=== PATIENT | female | born 1940 | race Caucasian/White ===

== ENCOUNTER 2021-12-13 03:05 | Inpatient (IN) | payer MEDICARE, OTHER ==
[~2021-12-13] VITALS: Ht 160 cm; Wt 54.4 kg
[2021-12-13] MEDS ORDERED: DIVA500T2 PO (03:59)
[2021-12-13 04:00] VITALS: BP 130/74
[2021-12-13] MEDS ORDERED: MAGNESIUM HYDROXIDE 30 ML UDC PO PRN (04:00)
[2021-12-13] MEDS ORDERED: MAG HYDROX/AL HYDROX/SIMETH 30 ML UDC PO PRN (04:00)
[2021-12-13] MEDS ORDERED: ACETAMINOPHEN 325 MG TABLET PO PRN (04:00)
[2021-12-13] MEDS ORDERED: TEMAZEPAM 7.5 MG CAPSULE PO PRN (04:00)
[2021-12-13 04:01] VITALS: BP 130/74
[2021-12-13] MEDS ORDERED: GABA-532 PO (04:03)
[2021-12-13] MEDS ORDERED: HYDR-3972 PO (04:04)
[2021-12-13] MEDS ORDERED: IBUP-1953 PO (04:05)
[2021-12-13] MEDS ORDERED: LEVO75TA7 PO (04:06)
[2021-12-13] MEDS ORDERED: LORA-259 PO (04:07)
[2021-12-13] MEDS ORDERED: OMEP20CA15 PO (04:07)
[2021-12-13] MEDS ORDERED: SENN-18 PO (04:08)
[2021-12-13] MEDS ORDERED: SIMV10TA2 PO (04:09)
[2021-12-13] MEDS ORDERED: BLOOD SUGAR DIAGNOSTIC 1 EACH STRIP IN ONE (04:30)
--- NOTE | 2021-12-13 04:55 | NUR ---
GPS RN ADMITTING NOTES: PATIENT ARRIVED THIS UNIT ON A GURNEY WITH EMT ESCORT. PATIENT WAS ADMITTED FROM [facility]. PATIENT IS HOMELESS. PATIENT IS ON A 5150 HOLD FOR GD. HOLD WAS PLACED ON 12/12/21 @ 1805. PER HOLD, PATIENT WAS BROUGHT TO [facility] ER BY HER DAUGHTER WHO STATED SHE IS UNABLE TO TAKE CARE FOR PATIENT. PATIENT WAS DELUSIONAL, DISORGANIZED AND UNABLE TO FORMULATE A VIABLE PLAN OF CARE. UPON FACE TO FACE EVALUATION, PATIENT IS A/O X1, APPEARS DEPRESSED, FLAT AFFECT, CRYING CONTINUOUSLY, DISORGANIZED, DISORIENTED, CONFUSED AND UNABLE TO FOLLOW REDIRECTION. PATIENT REFUSED TO SIGN ALL ADMISSION PAPER WORK, REFUSED FLU AND PNEUMONIA VACCINES AND SKIN ASSESSMENT. 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 PATIENT IS UNDER THE PSYCHIATRIC CARE OF DR STRATTON AND [facility]. BOTH HAVE BEEN NOTIFIED OF PATIENT ADMISSION AND ORDERS CARRIED OUT. PATIENT HAD NO BELONGINGS EXCEPT FOR A BLACK SLIP ON. PATIENT HAS NO S/S OF DISTRESS, RESPIRATION EVEN AND UNLABORED WITH EQUAL RISE AND FALL OF THE CHEST, ON ROOM AIR. PATIENT ADVISED OF HER HOLD AND PROVIDED WITH PATIENT'S RIGHTS HANDBOOK AND PRESCRIPTION MEDICATION GUIDE BOOKLET. PATIENT BED IS IN LOWEST POSITION AND LOCKED, SIDE RAILS UP X2 FOR SAFETY. CALL LIGHT WITHIN REACH. PATIENT OFFERED FLUID AND SNACKS TOLERATED. WILL CONTINUE TO MONITOR Q15 ROUNDS FOR SAFETY, MOOD AND BEHAVIOR.
--- NOTE | 2021-12-13 05:38 | NUR ---
GPS RN NOTE, PATIENT NEEDS A MEDICATION RECONCILIATION. PAGED [facility] AND INFORMED TAYLOR MOORE DNP OF MY FINDINGS. TAYLOR MOORE DNP SAID SHE WILL DO THE MED RECON WHEN SHE HAS A MOMENT. ALL ORDERS NOTED AND CARRIED OUT. WILL CONTINUE TO MONITOR THIS PATIENT WITH THE HELP OF STAFF.
--- NOTE | 2021-12-13 07:04 | NUR ---
GPS RN NOTES: CALLED AND LEFT A MESSAGE FOR PATIENT DAUGHTER JOHN ABOUT PATIENT ADMISSION AT 0655. WILL ENDORSE TO AM SHIFT TO FOLLOW UP.
[2021-12-13 08:00] VITALS: BP 134/68
[2021-12-13] MEDS ORDERED: IBUPROFEN 400 MG TABLET PO PRN (10:30)
[2021-12-13] MEDS: HYDROCODONE/APAP 5/325MG TABLET PO PRN (13:28)
--- NOTE | 2021-12-13 13:34 | NUR ---
GIVEN NORCO FOR NECK PAIN.
[2021-12-13 16:00] VITALS: BP 135/74
[2021-12-13] MEDS ORDERED: QUETIAPINE FUMARATE 25 MG TABLET PO SCH (17:00)
[2021-12-13] MEDS ORDERED: GABAPENTIN 100 MG CAPSULE PO SCH (17:00)
[2021-12-13] MEDS: SIMVASTATIN 10 MG TABLET PO SCH (18:17)
[2021-12-13] MEDS: DIVALPROEX SODIUM 125 MG CAP.SPRINK PO SCH (18:18)
[2021-12-13] MEDS: SENNOSIDES 8.6 MG TABLET PO SCH (18:19)
[2021-12-13] MEDS: GABAPENTIN 300 MG CAPSULE PO SCH (18:19)
[2021-12-13] MEDS: clonazePAM 0.5 MG TABLET PO PRN (20:11)
--- NOTE | 2021-12-13 20:13 | NUR ---
RN NOTES ANXIETY PT. VERY ANXIOUS ,NONREDIRECTABLE CRYING YELLING SCREAMING PRN KLONOPIN 0.25 MG PO GIVEN WILL CONTINUE TO MONITOR.
[2021-12-13 20:21] VITALS: BP 129/76
[2021-12-13] MEDS ORDERED: DIVALPROEX SODIUM 125 MG CAP.SPRINK PO SCH (21:00)
[2021-12-13] MEDS: CEPHALEXIN MONOHYDRATE 500 MG CAPSULE PO SCH (21:11)
[2021-12-14 06:37] LABS: BASOPHILS % (AUTO) 0.3 % (0.0-2.0); EOSINOPHILS % (AUTO) 1.4 % (0.0-6.0); HEMATOCRIT 38 % (33-45); HEMOGLOBIN 12.4 g/dL (11.5-14.8); LYMPHOCYTES # (AUTO) 2.5 K/uL (0.8-4.8); LYMPHOCYTES % (AUTO) 31.1 % (20.0-44.0); MEAN CORPUSCULAR HGB CONC 33 g/dl (31.0-36.0); MEAN CORPUSCULAR VOLUME 96 fL (82-100); MONOCYTES # (AUTO) 0.8 K/uL (0.1-1.30); MONOCYTES % (AUTO) 9.9 % (2.0-12.0); NEUTROPHILS # (AUTO) 4.6 K/uL (1.8-8.9); NEUTROPHILS % (AUTO) 57.3 % (43.0-81.0); PLATELET COUNT (AUTO) 195 K/uL (150-450); RED BLOOD CELL COUNT(AUTO) 3.96 MIL/uL (4.0-5.2)
[2021-12-14 06:41] LABS: CREATININE 0.7 mg/dL (0.6-1.3)
[2021-12-14 08:00] VITALS: BP 119/72
[2021-12-14] MEDS ORDERED: OMEPRAZOLE 20 MG CAPSULE.DR PO SCH (09:00)
[2021-12-14] MEDS: QUETIAPINE FUMARATE 100 MG TABLET PO SCH (09:32)
[2021-12-14] MEDS: DIVALPROEX SODIUM 125 MG CAP.SPRINK PO SCH ×2 (09:32→16:56)
[2021-12-14] MEDS: SENNOSIDES 8.6 MG TABLET PO SCH ×2 (09:32→16:52)
[2021-12-14] MEDS: CEPHALEXIN MONOHYDRATE 500 MG CAPSULE PO SCH (09:32)
[2021-12-14] MEDS: LEVOTHYROXINE SODIUM 75 MCG TABLET PO SCH (09:32)
[2021-12-14] MEDS: GABAPENTIN 300 MG CAPSULE PO SCH ×2 (09:32→16:52)
[2021-12-14] MEDS: PANTOPRAZOLE 40 MG TABLET.DR PO SCH (09:33)
[2021-12-14 16:00] VITALS: BP 140/73
[2021-12-14] MEDS: SIMVASTATIN 10 MG TABLET PO SCH (17:05)
[2021-12-14 20:02] VITALS: BP 108/68
[2021-12-14] MEDS: NITROFURANTOIN/MONOHYDRATE MACROCRYSTALS 100 MG CAPSULE PO SCH (20:47)
[2021-12-15 08:00] VITALS: BP 114/84
--- NOTE | 2021-12-15 09:11 | NUR ---
SW Admit Source: Patient brought from [facility] and placed on a 5150 hold for GD. Patient's daughter brought her to the hospital because she is unable to take care of pt at home. Patient will need a nursing facility. SW will work with pt and family to coordinate appropriate discharge.
--- NOTE | 2021-12-15 09:11 | NUR ---
ORALIA Initial Discharge Plan: Patient reported that she has been living with her daughter for two weeks. She reported daughter unable to take care of her. Patient would want this insurance underwriter sales to find a nursing facility. ORALIA will work with the family, MD, and patient to help coordinate appropriate discharge.
[2021-12-15] MEDS: QUETIAPINE FUMARATE 100 MG TABLET PO SCH (09:47)
[2021-12-15] MEDS: SENNOSIDES 8.6 MG TABLET PO SCH ×2 (09:47→16:49)
[2021-12-15] MEDS: GABAPENTIN 300 MG CAPSULE PO SCH ×2 (09:47→16:49)
[2021-12-15] MEDS: PANTOPRAZOLE 40 MG TABLET.DR PO SCH (09:47)
[2021-12-15] MEDS: NITROFURANTOIN/MONOHYDRATE MACROCRYSTALS 100 MG CAPSULE PO SCH ×2 (09:48→20:44)
[2021-12-15] MEDS: LEVOTHYROXINE SODIUM 75 MCG TABLET PO SCH (09:48)
[2021-12-15] MEDS: DIVALPROEX SODIUM 125 MG CAP.SPRINK PO SCH ×2 (09:48→16:49)
--- NOTE | 2021-12-15 10:48 | NUR ---
ORALIA Family Contact: SW contacted patient's daughter Miriam ([phone]) who stated that pt moved from [facility] to live with her. She stated that she found a new apartment and will be moving in 12/19 and stated that pt will be living with her. She reported that she is unsure of the address and will give to this SW end of this week.
[2021-12-15 16:00] VITALS: BP 127/78
[2021-12-15] MEDS: SIMVASTATIN 10 MG TABLET PO SCH (17:00)
[2021-12-15] MEDS: clonazePAM 0.5 MG TABLET PO PRN (20:16)
--- NOTE | 2021-12-15 20:18 | NUR ---
RN NOTES: ANXIETY PT. VERY ANXIOUS ,NONREDIRECTABLE CRYING YELLING SCREAMING PRN KLONOPIN 0.25 MG PO GIVEN WILL CONTINUE TO MONITOR.
[2021-12-15 20:45] VITALS: BP 131/85
[2021-12-16] MEDS: PANTOPRAZOLE 40 MG TABLET.DR PO SCH (07:04)
[2021-12-16] MEDS: LEVOTHYROXINE SODIUM 75 MCG TABLET PO SCH (07:04)
[2021-12-16 08:00] VITALS: BP 134/84
[2021-12-16] MEDS: QUETIAPINE FUMARATE 100 MG TABLET PO SCH (09:12)
[2021-12-16] MEDS: NITROFURANTOIN/MONOHYDRATE MACROCRYSTALS 100 MG CAPSULE PO SCH ×2 (09:12→21:11)
[2021-12-16] MEDS: SENNOSIDES 8.6 MG TABLET PO SCH ×2 (09:12→17:19)
[2021-12-16] MEDS: GABAPENTIN 300 MG CAPSULE PO SCH ×2 (09:13→17:19)
[2021-12-16] MEDS: DIVALPROEX SODIUM 125 MG CAP.SPRINK PO SCH ×2 (09:13→17:19)
--- NOTE | 2021-12-16 12:57 | NUR ---
ORALIA Family Contact: ORALIA received a call from pt's daughter Miriam ([phone]) concerned that they are going to lose their housing by end of this week and requested if pt can be discharged end of this week. ORALIA notified Dr. Stevenson.
[2021-12-16 16:00] VITALS: BP 116/49
[2021-12-16] MEDS: SIMVASTATIN 10 MG TABLET PO SCH (17:19)
[2021-12-16] MEDS: clonazePAM 0.5 MG TABLET PO PRN (21:12)
--- NOTE | 2021-12-16 21:16 | NUR ---
GPS RN NOTES: PATIENT IS RESTLESS, PACING, AGITATED AND CONFUSED. KLONOPIN 0.25MG GIVEN PO ORDERED. 0.25MG PARTIAL DOSE WASTED WITH WITNESS ORDERED. WILL CONTINUE TO MONITOR.
[2021-12-17 08:00] VITALS: BP 135/74
[2021-12-17] MEDS: PANTOPRAZOLE 40 MG TABLET.DR PO SCH (08:46)
[2021-12-17] MEDS: LEVOTHYROXINE SODIUM 75 MCG TABLET PO SCH (08:46)
[2021-12-17] MEDS: NITROFURANTOIN/MONOHYDRATE MACROCRYSTALS 100 MG CAPSULE PO SCH (08:46)
[2021-12-17] MEDS: DIVALPROEX SODIUM 125 MG CAP.SPRINK PO SCH ×2 (08:47→17:42)
[2021-12-17] MEDS: GABAPENTIN 300 MG CAPSULE PO SCH ×2 (08:47→17:42)
[2021-12-17] MEDS: SENNOSIDES 8.6 MG TABLET PO SCH ×2 (08:47→17:42)
[2021-12-17] MEDS: QUETIAPINE FUMARATE 100 MG TABLET PO SCH (08:51)
[2021-12-17 16:00] VITALS: BP 134/74
[2021-12-17] MEDS: SIMVASTATIN 10 MG TABLET PO SCH (17:42)
[2021-12-17] MEDS: clonazePAM 0.5 MG TABLET PO PRN (20:03)
--- NOTE | 2021-12-17 20:05 | NUR ---
RN NOTES: PATIENT IS RESTLESS, PACING, AGITATED AND CONFUSED. KLONOPIN 0.25MG GIVEN PO ORDERED. 0.25MG PARTIAL DOSE WASTED WITH WITNESS ORDERED. WILL CONTINUE TO MONITOR.
[2021-12-17 20:27] VITALS: BP 105/60
[2021-12-18 08:00] VITALS: BP 100/64
[2021-12-18] MEDS: SENNOSIDES 8.6 MG TABLET PO SCH ×2 (08:34→17:28)
[2021-12-18] MEDS: PANTOPRAZOLE 40 MG TABLET.DR PO SCH (08:34)
[2021-12-18] MEDS: DIVALPROEX SODIUM 125 MG CAP.SPRINK PO SCH ×2 (08:34→17:29)
[2021-12-18] MEDS: LEVOTHYROXINE SODIUM 75 MCG TABLET PO SCH (08:34)
[2021-12-18] MEDS: GABAPENTIN 300 MG CAPSULE PO SCH ×2 (08:34→17:28)
[2021-12-18] MEDS: QUETIAPINE FUMARATE 100 MG TABLET PO SCH (10:39)
--- NOTE | 2021-12-18 10:44 | NUR ---
RN-NOTES PATIENT C/O OF INDIGESTION,MAALOX 30ML GIVEN PRN ORDER.
--- NOTE | 2021-12-18 11:33 | NUR ---
ORALIA Family Contact: Patient will be discharged with daughter Miriam ([phone]). Daughter stated they will be staying at [facility] [address] at [address] [place] [address], [facility], ([phone]) Room [address]. Daughter stated that they are in the process of signing for an apartment. Addendum: 12/18/21 at 1145 by ORALIA LOW Daughter stated that they are in the process of signing for a new apartment located at [address], [facility] [place] [address]
--- NOTE | 2021-12-18 11:45 | NUR ---
RN-NOTES PATIENT LAYING IN BED CALM,NO ACUTE DISTRESS NOTED. STATED" MY STOMACH GETS BETTER".
[2021-12-18] MEDS: HYDROCODONE/APAP 5/325MG TABLET PO PRN (14:28)
[2021-12-18 16:00] VITALS: BP 90/60
[2021-12-18] MEDS: SIMVASTATIN 10 MG TABLET PO SCH (17:28)
[2021-12-18 20:00] VITALS: BP 92/49
[2021-12-19 08:00] VITALS: BP 110/66
[2021-12-19] MEDS: LEVOTHYROXINE SODIUM 75 MCG TABLET PO SCH (08:25)
[2021-12-19] MEDS: PANTOPRAZOLE 40 MG TABLET.DR PO SCH (08:25)
[2021-12-19] MEDS: GABAPENTIN 300 MG CAPSULE PO SCH ×2 (08:35→16:15)
[2021-12-19] MEDS: QUETIAPINE FUMARATE 100 MG TABLET PO SCH (08:35)
[2021-12-19] MEDS: DIVALPROEX SODIUM 125 MG CAP.SPRINK PO SCH ×2 (08:35→16:15)
[2021-12-19] MEDS: SENNOSIDES 8.6 MG TABLET PO SCH ×2 (08:35→16:15)
--- NOTE | 2021-12-19 09:00 | NUR ---
Court Notification: SW contacted patient's daughter Miriam ([phone]) to notify of patient's 7310 hearing and left a voicemail.
--- NOTE | 2021-12-19 12:37 | NUR ---
Court Hearing: Patient's court hearing for 5340 was today and it was upheld for GD.
--- NOTE | 2021-12-19 13:03 | NUR ---
SW EARLY ENTRY DISCHARGE NOTE 12/21: Patient will be discharged with daughter Miriam ([phone]). Daughter stated they will be staying at [facility] located at [address] [place] [address], [facility], ([phone]) Room [address]. Daughter stated that they are in the process of signing for a new apartment located at [address] [address]. Patient will be living with her daughter Miriam ([phone]). Patients daughter Miriam ([phone]) will pick put pt around 5PM-6PM. Patient presents alert and oriented x2. Patient happy to be going back home. Patient denies visual/auditory hallucinations. Patient denies suicidal or homicidal ideation. Patient will follow up with (Banquet Manager) Dr. Elida Palumbo located at [address] [facility] [facility] [place] [address]; ([phone]). Patient will follow up with (Psychiatrist) Dr. Ochoa located at [address] [place] [address]; ([phone]). Patient refused to sign the homeless waiver upon discharge and a copy was placed in the chart. Homeless resources were provided and include [address] information line for shelters and homeless resources. A copy of all resources given to patient was also placed in the chart. Patient presents with euthymic mood and congruent affect.
[2021-12-19 16:00] VITALS: BP 118/75
[2021-12-19] MEDS: SIMVASTATIN 10 MG TABLET PO SCH (17:33)
[2021-12-19 20:00] VITALS: BP 118/67
[2021-12-20] MEDS: LEVOTHYROXINE SODIUM 75 MCG TABLET PO SCH (07:52)
[2021-12-20] MEDS: PANTOPRAZOLE 40 MG TABLET.DR PO SCH (07:52)
[2021-12-20 08:00] VITALS: BP 122/65
[2021-12-20] MEDS: DIVALPROEX SODIUM 125 MG CAP.SPRINK PO SCH ×2 (08:24→17:29)
[2021-12-20] MEDS: GABAPENTIN 300 MG CAPSULE PO SCH ×2 (08:24→17:29)
[2021-12-20] MEDS: QUETIAPINE FUMARATE 100 MG TABLET PO SCH (08:24)
[2021-12-20] MEDS: SENNOSIDES 8.6 MG TABLET PO SCH ×2 (08:25→17:29)
[2021-12-20 16:00] VITALS: BP 114/65
[2021-12-20] MEDS: SIMVASTATIN 10 MG TABLET PO SCH (17:29)
[2021-12-20 20:00] VITALS: BP 141/68
[2021-12-21] MEDS: PANTOPRAZOLE 40 MG TABLET.DR PO SCH (06:46)
[2021-12-21] MEDS: LEVOTHYROXINE SODIUM 75 MCG TABLET PO SCH (06:46)
[2021-12-21 08:00] VITALS: BP 157/61
[2021-12-21] MEDS: GABAPENTIN 300 MG CAPSULE PO SCH (09:15)
[2021-12-21] MEDS: QUETIAPINE FUMARATE 100 MG TABLET PO SCH (09:16)
[2021-12-21] MEDS: DIVALPROEX SODIUM 125 MG CAP.SPRINK PO SCH (09:16)
[2021-12-21] MEDS: SENNOSIDES 8.6 MG TABLET PO SCH (09:16)
--- NOTE | 2021-12-21 12:15 | NUR ---
GPS/RN PT DISCHARGED HOME WITH her daughter Miriam ([phone]) VIA PRIVATE CAR. NO SI OR HI AT THE TIME OF D/C. EXIT CARE INSTRUCTIONS AND PRESCRIPTIONS GIVEN AND UNDERSTOOD. ID BAND REMOVED. PROPERTY RETURNED.
== END 2021-12-21 12:15 | disposition home or self-care (01) | DRG 885 ==
LOC: GPS 03:05
PROVIDERS: ADMIT Nurse Practitioner Psychiatric/Mental Health; ATTEND Nurse Practitioner Acute Care
DX: F25.0 Schizoaffective disorder, bipolar type (principal); N39.0 Urinary tract infection, site not specified; Z16.12 Extended spectrum beta lactamase (ESBL) resistance; F41.9 Anxiety disorder, unspecified; K21.9 Gastro-esophageal reflux disease without esophagitis; E78.5 Hyperlipidemia, unspecified; E03.9 Hypothyroidism, unspecified; B96.20 Unspecified Escherichia coli [E. coli] as the cause of diseases classified elsewhere; Z59.00 Homelessness unspecified; Z90.49 Acquired absence of other specified parts of digestive tract; F29 Unspecified psychosis not due to a substance or known physiological condition; Z73.6 Limitation of activities due to disability; F03.90 Unspecified dementia, unspecified severity, without behavioral disturbance, psychotic disturbance, mood disturbance, and anxiety
CPT/HCPCS: 36415; 70450-TC; 80048-TC; 80061-TC; 80164-TC; 82962-TC; 85025-TC; 87081-TC; 97116-TC; 97530-TC